=== PATIENT | male | born 1985 | race Caucasian/White ===

== ENCOUNTER 2017-12-18 19:33 | Emergency (ER) | payer OTHER ==
[~2017-12-18] VITALS: Ht 177.8 cm; Wt 83.9 kg
[~2017-12-18 19:33] MED LIST: CELEXA20 MG; ONDANSETRON HCL4 M2 PO; PERCOCET 5-3251 EACH PO; TAMSULOSIN HCL0.4 MG PO; XANAX 0.5 MG0.5 MG
[2017-12-18] MEDS ORDERED: KEFLEX500 M1 PO (21:42)
[2017-12-18] MEDS ORDERED: HYDROCODONE-AP1 EAC6 PO (21:42)
[2017-12-18 22:14] VITALS: BP 109/69
== END 2017-12-18 22:16 | disposition home or self-care (01) ==
LOC: M.ERS 19:33
DX: S61.411A Laceration without foreign body of right hand, initial encounter (principal); F17.210 Nicotine dependence, cigarettes, uncomplicated; Z90.49 Acquired absence of other specified parts of digestive tract; Z87.442 Personal history of urinary calculi; V29.9XXA Motorcycle rider (driver) (passenger) injured in unspecified traffic accident, initial encounter; Y93.89 Activity, other specified; Y92.89 Other specified places as the place of occurrence of the external cause; Y99.8 Other external cause status

== ENCOUNTER 2017-12-20 11:30 | Emergency (ER) | payer OTHER ==
[~2017-12-20] VITALS: Ht 177.8 cm; Wt 83.9 kg
[~2017-12-20 11:30] MED LIST changes: +HYDROCODONE-AP1 EAC6 PO; +KEFLEX500 M1 PO
[2017-12-20] MEDS ORDERED: BACTRIM DS TAB1 EACH PO (12:57)
[2017-12-20 13:09] VITALS: BP 99/66
== END 2017-12-20 13:10 | disposition home or self-care (01) ==
LOC: M.ERS 11:30
DX: S61.411A Laceration without foreign body of right hand, initial encounter (principal); L08.9 Local infection of the skin and subcutaneous tissue, unspecified; F17.210 Nicotine dependence, cigarettes, uncomplicated; Z87.442 Personal history of urinary calculi; V29.9XXA Motorcycle rider (driver) (passenger) injured in unspecified traffic accident, initial encounter; Y93.55 Activity, bike riding; Y92.89 Other specified places as the place of occurrence of the external cause; Y99.8 Other external cause status

== ENCOUNTER 2018-05-24 20:05 | Emergency (ER) | payer OTHER ==
[~2018-05-24] VITALS: Ht 180.3 cm; Wt 90.7 kg
[~2018-05-24 20:05] MED LIST changes: +BACTRIM DS TAB1 EACH PO
[2018-05-24] MEDS ORDERED: NORCO 5-325 TA1 EACH PO (22:00)
[2018-05-24] MEDS ORDERED: FLEXERIL PO (22:00)
[2018-05-24 22:14] VITALS: BP 125/71
== END 2018-05-24 22:15 | disposition home or self-care (01) ==
LOC: M.ERS 20:05
DX: S16.1XXA Strain of muscle, fascia and tendon at neck level, initial encounter (principal); F17.210 Nicotine dependence, cigarettes, uncomplicated; Z87.442 Personal history of urinary calculi; Z90.49 Acquired absence of other specified parts of digestive tract; V49.69XA Unspecified car occupant injured in collision with other motor vehicles in traffic accident, initial encounter; Y93.89 Activity, other specified; Y92.89 Other specified places as the place of occurrence of the external cause; Y99.8 Other external cause status